=== PATIENT | male | born 1985 | race Caucasian/White ===

== ENCOUNTER 2017-11-10 00:46 | Emergency (ER) | payer OTHER ==
[~2017-11-10] VITALS: Ht 180.3 cm; Wt 93.2 kg
[~2017-11-10 00:46] MED LIST: PRILOSEC20 MG PO
[2017-11-10] MEDS ORDERED: ZOFRAN ODT4 MG PO (02:23)
[2017-11-10 02:32] VITALS: BP 113/71
== END 2017-11-10 02:33 | disposition home or self-care (01) ==
LOC: EME 00:46
DX: B34.9 Viral infection, unspecified (principal); Z87.891 Personal history of nicotine dependence
CPT/HCPCS: 87502; 87651 90; 99281; 99283